=== PATIENT | female | born 1975 | race Caucasian/White ===

== ENCOUNTER 2018-05-14 16:55 | Inpatient (IN) | payer OTHER ==
[~2018-05-14] VITALS: Ht 170.2 cm; Wt 88.4 kg
--- NOTE | 2018-05-14 16:55 | NUR ---
BIB [facility] W/ CO SUDDEN ONSET L SIDED CARDOZO/DIZZINESS X 45 MIN WHARF BUILDER. +NAUSEA/VOMITING/CHANGES IN VISION. NO HX OF CARDOZO. DENIES SENSITIVITY TO LIGHT OR SOUND/ABD PAIN/RECENT ILLNESS/FEVER . PT ARRIVES A&OX4, SPEECH CLEAR, FACE SYMMETRICAL. +STRENGTH X4. GIVEN PHENERGAN AND NS WHARF BUILDER, WITH SOME RELIEF IN NAUSEA/PAIN. BP/SPO2/ECG MONITORING IN PLACE. NSR ON MONITOR. IV ESTABLISHED WHARF BUILDER, PATENT.
[2018-05-14] MEDS ORDERED: SODIUM CHLORIDE FLUSH 10ML SYR IVF ONE (17:00)
[2018-05-14 17:14] LABS: BASOPHILS # (AUTO) 0.03 x10^3/uL (0-0.1); BASOPHILS % (AUTO) 0 % (0-1); EOSINOPHILS # (AUTO) 0.14 x10^3/uL (0-0.4); EOSINOPHILS % (AUTO) 2 % (1-7); LYMPHOCYTES # (AUTO) 1.82 x10^3/uL (1-3.4); LYMPHOCYTES % (AUTO) 22 % (22-44); MD NO; MEAN CORPUSCULAR HEMOGLOBIN 32.8 pg (27.0-34.8); MEAN CORPUSCULAR HGB CONC 34.5 g/dL (32.4-35.8); MEAN CORPUSCULAR VOLUME 94.9 fL (80-100); MEAN PLATELET VOLUME 8.7 fL (7.4-10.4); MONOCYTES # (AUTO) 0.55 x10^3/uL (0.2-0.8); MONOCYTES % (AUTO) 7 % (2-9); NEUTROPHILS # (AUTO) 5.57 x10^3/uL (1.8-6.8); NEUTROPHILS % (AUTO) 69 % (42-75); PLATELET COUNT 258 x10^3/uL (130-400); RED BLOOD COUNT 3.95 x10^6/uL (3.82-5.3); RED CELL DISTRIBUTION WIDTH 13.8 % (9.6-15.2)
[2018-05-14 17:26] LABS: ALANINE AMINOTRANSFERASE 29 U/L (12-78); ALBUMIN 3.3 g/dL (3.4-5.0); ANION GAP 6 mmol/L (5-15); CALCIUM 7.9 mg/dL (8.5-10.1); CHLORIDE 109 mmol/L (98-107); CREATININE 0.83 mg/dL (0.55-1.02)
[2018-05-14 17:28] LABS: ALKALINE PHOSPHATASE 41 U/L (45-117); BILIRUBIN,TOTAL 0.4 mg/dL (0.2-1.0); TOTAL PROTEIN 5.7 g/dL (6.4-8.2)
--- NOTE | 2018-05-14 17:30 | NUR ---
PT RETURNED FROM CT.
[2018-05-14] MEDS ORDERED: BIRTH CONTROL (17:33)
--- NOTE | 2018-05-14 17:49 | NUR ---
CHART UP FOR RECHECK
--- NOTE | 2018-05-14 18:18 | NUR ---
PT RESTING IN GURNEY W/ EYES CLOSED. EVEN/REGULAR RESPIRATION NOTED. AWAITING RECHECK/DISPO
[2018-05-14] MEDS ORDERED: MORPHINE SULFATE 4 MG/ML, 1ML IVPush PRN (19:00)
[2018-05-14] MEDS ORDERED: ONDANSETRON 2MG/ML, 2ML IVPush ONE (19:00)
[2018-05-14] MEDS ORDERED: ONDANSETRON 2MG/ML, 2ML ONE (19:00)
--- NOTE | 2018-05-14 19:19 | NUR ---
PT MEDICATED PER EMAR FOR CONTINUED NAUSEA. DENIES VOMITING SINCE ARRIVAL. PT REPORTS CONTINUED CARDOZO "I THINK ITS JUST FROM HOW I WAS LAYING". PT REFUSING PAIN MEDICATIONS AT THIS TIME.
[2018-05-14] MEDS ORDERED: KETOROLAC 30 MG/1 ML IVPush ONE (19:30)
[2018-05-14 19:44] LABS: HCG UR SG 1.013 (1.003-1.030); MICROSCOPIC NOT IND
[2018-05-14 19:47] LABS: CULTURE INDICATED? NO
--- NOTE | 2018-05-14 20:02 | NUR ---
Break RN: Pt reports mild headache, states it is a tolerable level. Pt aware md has ordered pain management meds, pt continues to refuse need for meds. and pt again told to notify RN if pain becomes intolerable. Lights remain dimmed, pt given another warm blanket, door closed for pt comfort.
[2018-05-14] MEDS ORDERED: KETOROLAC 30 MG/1 ML ONE (20:55)
[2018-05-14] MEDS ORDERED: MECLIZINE CHEWABLE 25 MG TAB ONE (20:55)
--- NOTE | 2018-05-14 20:57 | NUR ---
PT MEDICATED PER EMAR FOR DIZZINESS AND PAIN
[2018-05-14] MEDS ORDERED: MECLIZINE CHEWABLE 25 MG TAB PO ONE (21:00)
--- NOTE | 2018-05-14 21:27 | NUR ---
PT REPORTS EMESIS X ONE W/ NO RELIEF OF CARDOZO AFTER MEDICATIONS. PT REMAINS A&OX4, SPEECH CLEAR, FACE SYMMETRICAL. PT MILDLY UNSTEADY GATE W/ AMBULATION. NSR CONTINUES ON MONITOR. ERP AWARE AND IS TO BEDSIDE TO DISCUSS POC
--- NOTE | 2018-05-14 21:38 | NUR ---
PT W/ EPISODE OF EMESIS. PT REPORTS IMPROVEMENT IN CARDOZO, "I'M JUST DIZZY THE ROOM IS SPINNING". SO REMAINS AT BEDSIDE. ERO AWARE OF EMESIS. AWAITING ORDERS
[2018-05-14] MEDS ORDERED: PROMETHAZINE 25 MG/ML, 1ML ONE (21:59)
[2018-05-14] MEDS ORDERED: PROMETHAZINE 25 MG/ML, 1ML IM ONE (22:00)
--- NOTE | 2018-05-14 22:07 | NUR ---
PT IN CT. DELAY IN MEDICATING
--- NOTE | 2018-05-14 22:16 | NUR ---
PT MEDICATED PER EMAR W/ PHENERGAN FOR NAUSEA. BP/SPO2/ECG MONITORING IN PLACE. GROSS NEURO REMAINS INTACT. PT REPORTS NUMBNESS OVER L LIPS/CHEEK. "THIS HAS HAPPENED A FEW TIME TODAY". FACE SYMMETRICAL, SPEECH CLEAR. ERP AWARE.
--- NOTE | 2018-05-14 23:00 | NUR ---
PT STATED headache is better but face is numb vss updated
[2018-05-14] MEDS ORDERED: OMNIPAQUE 350 MG/ML, 100ML BOTTLE ONE (23:47)
[2018-05-15] MEDS ORDERED: MECLIZINE CHEWABLE 25 MG TAB PO PRN
[2018-05-15] MEDS ORDERED: hydrALAzine 20 MG/ML, 1ML IVPush PRN
[2018-05-15] MEDS ORDERED: ONDANSETRON 2MG/ML, 2ML IVPush PRN
[2018-05-15] MEDS ORDERED: ASPIRIN 325 MG TABLET PO ONE
[2018-05-15] MEDS ORDERED: ACETAMINOPHEN 325 MG TABLET PO PRN
[2018-05-15] MEDS ORDERED: ASPIRIN 325 MG TABLET ONE (00:15)
[2018-05-15 00:49] VITALS: BP_SYST 145; BP_SYST 164; BP_DIAS 91; BP_DIAS 92
[2018-05-15 06:11] LABS: HCT (SEDRATE) 39.8 % (34.6-47.8)
[2018-05-15 06:15] LABS: BASOPHILS # (AUTO) 0.02 x10^3/uL (0-0.1); BASOPHILS % (AUTO) 0 % (0-1); EOSINOPHILS # (AUTO) 0.02 x10^3/uL (0-0.4); EOSINOPHILS % (AUTO) 0 % (1-7); LYMPHOCYTES # (AUTO) 1.86 x10^3/uL (1-3.4); LYMPHOCYTES % (AUTO) 17 % (22-44); MD NO; MEAN CORPUSCULAR HEMOGLOBIN 32.9 pg (27.0-34.8); MEAN CORPUSCULAR HGB CONC 34.8 g/dL (32.4-35.8); MEAN CORPUSCULAR VOLUME 94.7 fL (80-100); MEAN PLATELET VOLUME 8.9 fL (7.4-10.4); MONOCYTES # (AUTO) 0.55 x10^3/uL (0.2-0.8); MONOCYTES % (AUTO) 5 % (2-9); NEUTROPHILS # (AUTO) 8.37 x10^3/uL (1.8-6.8); NEUTROPHILS % (AUTO) 77 % (42-75); PLATELET COUNT 292 x10^3/uL (130-400); RED BLOOD COUNT 4.16 x10^6/uL (3.82-5.3); RED CELL DISTRIBUTION WIDTH 13.7 % (9.6-15.2)
[2018-05-15 06:22] LABS: ANION GAP 8 mmol/L (5-15); CALCIUM 8.3 mg/dL (8.5-10.1); CHLORIDE 109 mmol/L (98-107)
[2018-05-15 06:30] LABS: C-REACTIVE PROTEIN, QUANT 0.69 mg/dL (0.02-0.49); CHOL/HDL RATIO 2.7; CHOLESTEROL, TOTAL 144 mg/dL (140-239); CREATININE 0.74 mg/dL (0.55-1.02); HDL CHOL % 37 % (28-40); HDL CHOLESTEROL (DIRECT) 53 mg/dL (40-60); LDL CHOLESTEROL,CALCULATED 78 mg/dL (54-169); LDL/HDL RATIO 1.5 (0.5-3.0); TRIGLYCERIDES 67 mg/dL (50-200); TROPONIN I < 0.015 ng/mL (0.000-0.045); VLDL CHOLESTEROL 13 mg/dL (0-25)
[2018-05-15 06:35] LABS: THYROID STIMULATING HORMONE 0.355 mIU/L (0.358-3.740)
[2018-05-15 08:03] VITALS: BP_SYST 131; BP_SYST 132; BP_SYST 144; BP_DIAS 83; BP_DIAS 88; BP_DIAS 90
[2018-05-15 08:06] VITALS: BP 141/84
[2018-05-15] MEDS ORDERED: ASPIRIN 81 MG TABLET EC PO SCH (09:00)
[2018-05-15] MEDS ORDERED: GADOBUTROL 10 MMOL/10 ML PFS ONE (11:28)
[2018-05-15 12:30] VITALS: BP 141/93
[2018-05-15] MEDS: BUTALB/APAP/CAFFEINE 50MG/325MG/40MG PO PRN ×2 (12:45→19:29)
[2018-05-15 14:19] VITALS: BP 130/87
[2018-05-15] MEDS ORDERED: LABETALOL 5 MG/ML SYRINGE IV PRN (15:00)
[2018-05-15] MEDS ORDERED: GABAPENTIN 300 MG CAPSULE PO PRN (15:00)
[2018-05-15] MEDS ORDERED: ASPIRIN 81 MG TABLET EC PO ONE (15:00)
[2018-05-15] MEDS: ATORVASTATIN 80 MG TABLET PO SCH ×2 (15:42→20:08)
[2018-05-15 20:00] VITALS: BP 138/90
[2018-05-16 02:00] VITALS: BP 135/91
[2018-05-16] MEDS: BUTALB/APAP/CAFFEINE 50MG/325MG/40MG PO PRN ×3 (04:59→17:36)
[2018-05-16 05:46] LABS: ANION GAP 8 mmol/L (5-15); CALCIUM 8.8 mg/dL (8.5-10.1); CHLORIDE 107 mmol/L (98-107); CHOLESTEROL, TOTAL 130 mg/dL (140-239); CREATININE 0.89 mg/dL (0.55-1.02); TRIGLYCERIDES 77 mg/dL (50-200); VLDL CHOLESTEROL 15 mg/dL (0-25)
[2018-05-16 05:48] LABS: CHOL/HDL RATIO 2.6; HDL CHOL % 38 % (28-40); HDL CHOLESTEROL (DIRECT) 50 mg/dL (40-60); LDL CHOLESTEROL,CALCULATED 65 mg/dL (54-169); LDL/HDL RATIO 1.3 (0.5-3.0)
[2018-05-16 05:53] LABS: BASOPHILS # (AUTO) 0.03 x10^3/uL (0-0.1); BASOPHILS % (AUTO) 0 % (0-1); EOSINOPHILS # (AUTO) 0.13 x10^3/uL (0-0.4); EOSINOPHILS % (AUTO) 2 % (1-7); LYMPHOCYTES # (AUTO) 2.44 x10^3/uL (1-3.4); LYMPHOCYTES % (AUTO) 30 % (22-44); MD NO; MEAN CORPUSCULAR HEMOGLOBIN 32.2 pg (27.0-34.8); MEAN CORPUSCULAR HGB CONC 33.8 g/dL (32.4-35.8); MEAN CORPUSCULAR VOLUME 95.4 fL (80-100); MEAN PLATELET VOLUME 8.8 fL (7.4-10.4); MONOCYTES # (AUTO) 0.64 x10^3/uL (0.2-0.8); MONOCYTES % (AUTO) 8 % (2-9); NEUTROPHILS # (AUTO) 5.02 x10^3/uL (1.8-6.8); NEUTROPHILS % (AUTO) 61 % (42-75); PLATELET COUNT 299 x10^3/uL (130-400); RED BLOOD COUNT 4.29 x10^6/uL (3.82-5.3); RED CELL DISTRIBUTION WIDTH 13.4 % (9.6-15.2)
[2018-05-16 07:53] VITALS: BP 148/90
[2018-05-16] MEDS: ASPIRIN 81 MG TABLET EC PO SCH ×2 (09:49→10:43)
[2018-05-16 13:36] VITALS: BP 135/87
[2018-05-16 19:44] VITALS: BP 130/88
[2018-05-16] MEDS: ATORVASTATIN 80 MG TABLET PO SCH (20:32)
[2018-05-17 00:08] VITALS: BP 139/84
[2018-05-17 07:40] VITALS: BP 142/93
[2018-05-17] MEDS: BUTALB/APAP/CAFFEINE 50MG/325MG/40MG PO PRN ×2 (07:47→16:15)
[2018-05-17] MEDS: ASPIRIN 81 MG TABLET EC PO SCH (09:45)
[2018-05-17] MEDS ORDERED: ASPI81TA45 PO (13:54)
[2018-05-17] MEDS ORDERED: ATOR-2 PO (13:54)
[2018-05-17 15:59] VITALS: BP 158/85
== END 2018-05-17 16:49 | disposition home or self-care (01) | DRG 66 ==
LOC: ED 23:12 → EDIP 23:34 → 4WST 05-15 00:34 → DCLOUNGE 05-17 16:22
PROVIDERS: ADMIT Internal Medicine; ATTEND Internal Medicine
DX: I63.542 Cerebral infarction due to unspecified occlusion or stenosis of left cerebellar artery (principal); D72.829 Elevated white blood cell count, unspecified; G43.009 Migraine without aura, not intractable, without status migrainosus; I10 Essential (primary) hypertension; G51.0 Bell's palsy; Z79.82 Long term (current) use of aspirin; Z82.49 Family history of ischemic heart disease and other diseases of the circulatory system
CPT/HCPCS: 36415; 70450; 70496; 70498; 70553; 80048; 80053; 80061; 81003; 81025; 81241; 83090; 83735; 84439; 84443; 84484; 85025; 85300; 85303; 85306; 85651; 86140; 86147; 93005; 93306; 93308; 96372; 96374; 96375; A9585; G0378; J1885; J2405; J2550; Q9967; 92523-GN

== ENCOUNTER → 2019-05-29 | Outpatient (CLI) | payer OTHER ==
[~2019-05-29] MED LIST: ASPI81TA45 PO; ATOR-2 PO; BIRTH CONTROL
== END | disposition home or self-care (01) ==
LOC: CFH 15:45
PROVIDERS: ATTEND Internal Medicine Cardiovascular Disease
DX: I11.9 Hypertensive heart disease without heart failure (principal); R94.31 Abnormal electrocardiogram [ECG] [EKG]
CPT/HCPCS: 93306